=== PATIENT | female | born 1955 | race Caucasian/White ===

== ENCOUNTER 2022-06-09 11:20 | Outpatient (CLI) | payer MEDICARE ==
[~2022-06-09 11:20] MED LIST: Iopamidol 370 76% 100 ML VIAL ONE
== END 2022-06-09 11:21 | disposition home or self-care (01) ==
LOC: CT 11:20
PROVIDERS: ATTEND Student in an Organized Health Care Education/Training Program
DX: R59.0 Localized enlarged lymph nodes (principal); M47.812 Spondylosis without myelopathy or radiculopathy, cervical region
CPT/HCPCS: 70491; 82565; Q9967

== ENCOUNTER 2022-07-11 15:22 | Outpatient (CLI) | payer MEDICARE | END 2022-07-11 15:23 | disposition home or self-care (01) | LOC: ULT 15:22 | PROVIDERS: ATTEND Student in an Organized Health Care Education/Training Program | DX: E04.2 Nontoxic multinodular goiter (principal) | CPT/HCPCS: 76536 ==

== ENCOUNTER 2024-10-16 10:30 | Outpatient (CLI) | payer MEDICARE, OTHER | END 2024-10-16 10:31 | disposition home or self-care (01) | LOC: CT 10:30 | PROVIDERS: ATTEND Internal Medicine Gastroenterology | DX: K58.1 Irritable bowel syndrome with constipation (principal); R10.32 Left lower quadrant pain; K63.89 Other specified diseases of intestine; Z86.0100 Personal history of colon polyps, unspecified | CPT/HCPCS: 36415; 74177; 82565 ==